=== PATIENT | male | born 1990 | race Caucasian/White ===

== ENCOUNTER 2020-04-20 20:13 | Inpatient (IN) | payer MEDICAID, SELFPAY ==
[~2020-04-20] VITALS: Ht 175.3 cm; Wt 79.6 kg
[~2020-04-20 20:13] MED LIST: CLIN150C14 PO; IBUP-1022 PO
[2020-04-20] MEDS ORDERED: NALOXONE 2MG/2ML SYRINGE (J2310 PER 1MG) IV STA ×2 (20:18→20:34)
[2020-04-20] MEDS ORDERED: NALOXONE INJ 0.4MG/1ML VIAL (J2310 PER 1MG) IM STA (20:18)
[2020-04-20] MEDS ORDERED: NALOXONE 2MG/2ML SYRINGE (J2310 PER 1MG) As Ordered ONE (20:20)
[2020-04-20] MEDS ORDERED: NALOXONE INJ 0.4MG/1ML VIAL (J2310 PER 1MG) IV STA (20:34)
--- NOTE | 2020-04-20 21:23 | REPVR ---
PROCEDURE INFORMATION: Exam: CT Head Without Contrast Exam date and time: 04/20/2020 9:11 PM Age: 29 years old Clinical indication: Altered mental status/memory loss; Confusion or disorientation; Additional info: AMS TECHNIQUE: Imaging protocol: Computed tomography of the head without contrast. Radiation optimization: All CT scans at this facility use at least one of these dose optimization techniques: automated exposure control; mA and/or kV adjustment per patient size (includes targeted exams where dose is matched to clinical indication); or iterative reconstruction. COMPARISON: No relevant prior studies available. FINDINGS: Brain: There is no evidence for an acute large vessel territorial infarct, intracranial hemorrhage, mass, mass effect, or herniation. The cortical gyration pattern, basal ganglia, thalami, brainstem, and cerebellum are normal in appearance. Ventricles: Normal. No ventriculomegaly. Bones/joints: Unremarkable. No acute fracture. Sinuses: Visualized sinuses are well-aerated. No air-fluid levels. Mastoid air cells: Visualized mastoid air cells are well-aerated. Soft tissues: Unremarkable. IMPRESSION: No acute intracranial abnormality. Electronically signed by: Shimon Gil On 04/20/2020 21:23:28 PM
[2020-04-20] MEDS ORDERED: PROPOFOL 1,000 MG/100 ML VIAL As Ordered ONE (21:27)
[2020-04-20] MEDS ORDERED: SUCCINYLCHOLINE INJ 200 MG/10 ML VIAL (J0330) IV STA (21:31)
[2020-04-20 21:46] LABS: BASO % 0.3 % (0.0-1.0); EOS # 0.3 10^3/uL (0.0-0.5); EOS % 2.5 % (0.0-3.0); HEMATOCRIT 38.1 % (42.0-52.0); HEMOGLOBIN 13.2 g/dl (13.5-17.5); LYMPH # 1.8 10^3/uL (1.5-5.0); LYMPH % 15.1 % (24.0-44.0); MEAN CORPUSCULAR HEMOGLOBIN 30.6 pg (27.0-33.0); MEAN CORPUSCULAR HGB CONC 34.6 g/dl (32.0-36.5); MEAN CORPUSCULAR VOLUME 88.2 fl (80.0-96.0); MONO # 0.8 10^3/uL (0.0-0.8); MONO % 7.1 % (0.0-5.0); NEUTROPHILS # 8.8 10^3/uL (1.5-8.5); NEUTROPHILS % 74.5 % (36.0-66.0); PLATELET COUNT, AUTOMATED 209 10^3/uL (150-450); RED BLOOD COUNT 4.32 10^6/uL (4.30-6.10); WHITE BLOOD COUNT 11.8 10^3/uL (4.0-10.0)
[2020-04-20 22:12] LABS: ALBUMIN 3.5 GM/DL (3.2-5.2); ALT/SGPT 31 U/L (12-78); BILIRUBIN,DIRECT < 0.1 MG/DL (0.0-0.2); BILIRUBIN,TOTAL 0.3 MG/DL (0.2-1.0); BLOOD UREA NITROGEN 19 MG/DL (7-18); CALCIUM LEVEL 8.5 MG/DL (8.5-10.1); CARBON DIOXIDE LEVEL 32 MEQ/L (21-32); CHLORIDE LEVEL 105 MEQ/L (98-107); CPK CREATINE PHOSPHOKINASE 550 U/L (39-308); ETHYL ALCOHOL (ETHANOL) < 0.003 % (0.000-0.010); FREE THYROXINE INDEX 4.8 % (1.4-3.8); GLOMERULAR FILTRATION RATE > 60.0 (>60); GLUCOSE, FASTING 105 MG/DL (70-100); SODIUM LEVEL 140 MEQ/L (136-145); T UPTAKE 39 % (33-40); THYROXINE (T4) 12.2 UG/DL (4.5-12.0); TOTAL PROTEIN 6.6 GM/DL (6.4-8.2)
[2020-04-20] MEDS ORDERED: NS 1,000 ML IV ONE (22:30)
[2020-04-20] MEDS: propofoL 1,000 MG in IV 1 EA IV SCH ×2 (22:40→23:00)
[2020-04-20] MEDS ORDERED: METAL LOCK LOOP XX ONE (23:07)
[2020-04-20 23:14] LABS: AMPHETAMINES LEVEL URINE NEGATIVE (NEGATIVE); BARBITURATES URINE NEGATIVE (NEGATIVE); BENZODIAZEPINES URINE NEGATIVE (NEGATIVE); CANNABINOIDS URINE POSITIVE (NEGATIVE); COCAINE METABOLITE URINE POSITIVE (NEGATIVE); METHADONE URINE POSITIVE (NEGATIVE); OPIATES URINE POSITIVE (NEGATIVE); PHENCYCLIDINE URINE NEGATIVE (NEGATIVE)
[2020-04-20] MEDS ORDERED: MIDAZOLAM INJ 2MG/2ML VIAL (J2250 PER 1MG) IV PRN (23:30)
[2020-04-20] MEDS ORDERED: MULTIVITAMIN -ADULT INJECTION 10 ML, THIAMINE INJection 100 MG, FOLIC ACID 1 MG in NS 1... IV ONE (23:30)
[2020-04-20 23:43] LABS: ACETAMINOPHEN LEVEL < 2.0 UG/ML (10.0-30.0); SALICYLATE LEVEL 2.6 MG/DL (5.0-30.0); TROPONIN I 0.04 NG/ML (< 0.10)
[2020-04-21] VITALS (13 sets, daily range): BP systolic 99–130; BP diastolic 53–69; O2SAT 98
[2020-04-21] MEDS: propofoL 1,000 MG in IV 1 EA IV SCH ×4 (00:55→08:40)
[2020-04-21 04:21] LABS: BASO % 0.2 % (0.0-1.0); EOS # 0.1 10^3/uL (0.0-0.5); EOS % 1.1 % (0.0-3.0); HEMATOCRIT 36.7 % (42.0-52.0); HEMOGLOBIN 12.5 g/dl (13.5-17.5); LYMPH # 1.6 10^3/uL (1.5-5.0); LYMPH % 12.1 % (24.0-44.0); MEAN CORPUSCULAR HEMOGLOBIN 30.4 pg (27.0-33.0); MEAN CORPUSCULAR HGB CONC 34.1 g/dl (32.0-36.5); MEAN CORPUSCULAR VOLUME 89.3 fl (80.0-96.0); MONO # 0.7 10^3/uL (0.0-0.8); MONO % 5.7 % (0.0-5.0); NEUTROPHILS # 10.3 10^3/uL (1.5-8.5); NEUTROPHILS % 80.5 % (36.0-66.0); PLATELET COUNT, AUTOMATED 188 10^3/uL (150-450); RED BLOOD COUNT 4.11 10^6/uL (4.30-6.10); WHITE BLOOD COUNT 12.8 10^3/uL (4.0-10.0)
[2020-04-21 04:52] LABS: ALBUMIN 3.1 GM/DL (3.2-5.2); ALT/SGPT 26 U/L (12-78); BILIRUBIN,TOTAL 0.4 MG/DL (0.2-1.0); BLOOD UREA NITROGEN 18 MG/DL (7-18); CALCIUM LEVEL 8.2 MG/DL (8.5-10.1); CARBON DIOXIDE LEVEL 29 MEQ/L (21-32); CHLORIDE LEVEL 107 MEQ/L (98-107); CPK CREATINE PHOSPHOKINASE 391 U/L (39-308); GLOMERULAR FILTRATION RATE > 60.0 (>60); GLUCOSE, FASTING 93 MG/DL (70-100); MAGNESIUM LEVEL 2.1 MG/DL (1.8-2.4); PHOSPHORUS LEVEL 3.6 MG/DL (2.5-4.9); POTASSIUM SERUM 4.2 MEQ/L (3.5-5.1); SODIUM LEVEL 140 MEQ/L (136-145); TOTAL PROTEIN 5.9 GM/DL (6.4-8.2)
[2020-04-21 05:34] LABS: ABG BASE EXCESS 2.9 (-2.0-2.0); ABG HCO3 28.1 MEQ/L (22.0-26.0); ABG O2 SATURATION 97.8 % (95.0-99.0); ABG PARTIAL PRESSURE CO2 45.1 mmHg (35.0-45.0); ABG PARTIAL PRESSURE O2 106.8 mmHg (75.0-100.0); ABG STANDARD HCO3 27.1 MEQ/L (22.0-26.0); ABG TOTAL CO2 29.5 MEQ/L (22.0-29.0); ABG pH (ARTERIAL) 7.412 UNITS (7.350-7.450)
[2020-04-21] MEDS ORDERED: PROPOFOL 1,000 MG/100 ML VIAL As Ordered ONE (05:37)
--- NOTE | 2020-04-21 06:59 | HPE ---
DATE OF ADMISSION: 04/20/2020 CHIEF COMPLAINT: Altered mental status. HISTORY OF PRESENT ILLNESS: Mr. Monsivais is a 29-year-old male with a past medical history of polysubstance abuse with previous history of overdose who presented to the ED with lethargy and altered mental status. History is obtained from the chart and from other collateral information as the patient is unable to provide history. As per EMS, the patient was at work earlier in the day when his coworker had noticed that he had been absent for quite some time. When they went to find him, he was unconscious near his vehicle. EMS and police had given the patient 2 mg of Narcan IM times two with minimal response. He was somewhat arousable with painful stimulation, but very quickly would become unresponsive again. He had nasopharyngeal airway placed and bag mask ventilation while in the field en route to the ED. The patient was given an additional 2 mg of Narcan IM times two and then IV Narcan 2 mg times two. With the Narcan, he was arousable to sternal rub, however, would again become unresponsive and obtunded. There was concern for airway protection and the patient was intubated in the ED and placed on mechanical ventilation. He was also noted to have some nose bleeding as well in the ED. The patient has a previous history of heroin abuse and overdose, although there is also report of other polysubstance abuse. PAST MEDICAL/SURGICAL HISTORY: 1. Polysubstance abuse including heroin with a previous history of overdose. 2. Nicotine dependence. 3. History of traumatic pneumothorax on the right. ALLERGIES: MORPHINE SOCIAL HISTORY: Reported history of polysubstance abuse including heroin. Current active smoker. FAMILY HISTORY: Unable to be obtained. HOME MEDICATIONS: None. REVIEW OF SYSTEMS: Unable to be obtained as patient is intubated and sedated. PHYSICAL EXAMINATION: Vitals: Temperature 98.2, pulse 75, respirations 18, blood pressure 102/50, O2 sat 98% on mechanical ventilation at 40% FiO2. General: The patient is intubated and sedated. He is minimally responsive even to sternal rub. HEENT: Normocephalic, atraumatic. Pupils are pinpoint and sluggish. There is dried blood in the nares. Neck is supple. Trachea is midline. No palpable cervical adenopathy. Moist mucous membranes noted. Cardiovascular: Regular rate and rhythm. Normal S1, S2. Unable to appreciate any murmurs or rubs. PMI is nondisplaced. Pulmonary: Coarse ventilator breath sounds bilaterally with no wheezing or rales. Abdomen: Soft, nontender, nondistended. No palpable hepatosplenomegaly. Extremities: There is no pitting edema in the bilateral lower extremities. There are track lemons noted on his left arm. LABORATORY DATA: WBC 11.81, hemoglobin 13.2, platelets 209. Chemistry: Sodium is 140, potassium 4.0, chloride 105, bicarb 32, BUN 19, creatinine 1.20, glucose 105, AST 84, ALT 31, alkaline phosphatase 70, CPK 550. TSH is 2.08. Free T4 4.8. Alcohol level is negative. Urine toxicology positive opioids, methadone, cocaine and cannabis. ABG: pH 7.4, pCO2 of 50.2, pO2 of 110. IMAGING STUDIES: CT head showed no acute intracranial pathology. Chest x-ray showed ET tube in good position and OG tube in place coursing below the diaphragm. There is questionable left basilar infiltrate and possible hilar fullness. I ASSESSMENT/PLAN: Mr. Monsivais is a 29-year-old male with a history of polysubstance abuse who presented with altered mental status thought to be secondary to overdose. The patient's coworker reported that he did have a possible heroin overdose and the patient was administered Narcan a total of 8 mg IM and 4 mg IV with minimal response in his mental status. The patient continued to be obtunded with a depressed respiratory rate and there was concern for airway protection and he was intubated in the ED and placed on mechanical ventilator. 1. Metabolic encephalopathy secondary to drug overdose/intoxication. Urine toxicology was positive for methadone, opiods, cannabis and cocaine. - Continue mechanical ventilation with settings of PRVC at 500/15/40/5. - Continue with daily ABGs and chest x-rays while intubated. - Continue with the vent bundle care with head of bed elevation and chlorhexidine mouth wash - Will perform daily sedation vacation and weaning trials as tolerated. - Continue with propofol for sedation with Versed p.r.n. for agitation. - Will check Tylenol and salicylate level given unknown overdose. - The patient was given 1 liter normal saline in the ED. Will give him an additional 1 liter with a banana bag for IV fluid hydration. - Will monitor electrolytes and replete as needed. - The patient had mildly elevated CPK and an AST which was mildly elevated. Will repeat CPK in the a.m. and suspect will trend down with IV fluid hydration. - Will continue Gautam for monitoring of ins and outs and follow removal protocol. Gastrointestinal (GI) prophylaxis. Famotidine. Deep vein thrombosis (DVT) prophylaxis. Lovenox. CODE STATUS: Full code. Total critical care time spent, not including procedures approximately 1 hour and 45 minutes. MTDD
[2020-04-21] MEDS ORDERED: SUCCINYLCHOLINE 100 MG/5 ML SYRINGE (J0330) ONE (07:51)
[2020-04-21] MEDS ORDERED: FAMOTIDINE 20 MG TAB PO SCH (09:00)
[2020-04-21] MEDS ORDERED: ENOXAPARIN 40MG/0.4ML SYRINGE (J1650 PER 10MG) SC SCH (09:00)
[2020-04-21] MEDS ORDERED: CHLORHEXIDINE GLUCONATE 0.12 % 15ML UDC (PERIDEX ORAL RINSE) MT SCH (09:00)
--- NOTE | 2020-04-21 10:56 | IPNPDOC ---
Subjective Date Seen The patient was seen on 04/21/20. Subjective Chief Complaint/HPI Patient seen at bedside. Extubated just an hour ago. Somnolent but easily arousable. Denied any complaints. Denied any SOB or cough. Objective Physical Examination General Exam: Positive: Cooperative, No Acute Distress, Other (sleepy but easily arousable) Eye Exam: Positive: PERRLA, Conjunctiva & lids normal, EOMI; Negative: Sclera icteric ENT Exam: Positive: Atraumatic, Mucous membr. moist/pink, Pharynx Normal Neck Exam: Positive: Supple; Negative: JVD, thyromegaly Chest Exam: Positive: Normal air movement, Rales Heart Exam: Positive: Rate Normal, Regular Rhythm, Normal S1, Normal S2; Negative: Murmurs, Rubs Telemetry: Positive: No significant arrhythmia Abdomen Exam: Positive: Normal bowel sounds, Soft; Negative: Tenderness, Hepatospenomegaly Extremity Exam: Negative: Clubbing, Cyanosis, Edema Assessment /Plan Assessment 29 year old male with PMH of Polysubstance abuse including heroin with a previous history of overdose, Nicotine dependence, History of traumatic pneumothorax was admitted on 04/20/20 for drug overdose , metabolic encephalopathy and acute respiratory failure. He was intubated in ED and admitted to ICU. His utox was positive for opiates, cocaine, marijana, methadone. He was success fully extubated on 04/21/20 and was transferred to the hospitalist service. Acute respiratory failure with hypercarbia s/p intubation and extubation. due to opiates now resolved. Acute metabolic encephalopathy due to polysubstance abuse. improving. Plan/VTE VTE Prophylaxis Ordered?: Yes VS, [facility]&O[facility] Vital Signs/I&O Vital Signs Date Time Temp Pulse Resp B/P (MAP) Pulse Ox O2 Delivery O2 Flow Rate FiO2 04/21/20 10:10 78 16 100 Nasal Cannula 2.0 04/21/20 10:00 119/69 (86) 04/21/20 09:00 25 04/21/20 08:00 98.8 I&O- Last 24 Hours up to 6 AM 04/21/20 06:00 Intake Total 1945 ml Output Total 420 ml Balance 1525 ml Laboratory Data 24H LABS Laboratory Tests 2 04/20/20 20:58: Immature Granulocyte % (Auto) 0.5, Neutrophils (%) (Auto) 74.5H, Lymphocytes (%) (Auto) 15.1L, Monocytes (%) (Auto) 7.1H, Eosinophils (%) (Auto) 2.5, Basophils (%) (Auto) 0.3, Neutrophils # (Auto) 8.8H, Lymphocytes # (Auto) 1.8, Monocytes # (Auto) 0.8, Eosinophils # (Auto) 0.3, Basophils # (Auto) 0.0, Nucleated Red Blood Cells % (auto) 0.0, Anion Gap 3L, Glomerular Filtration Rate > 60.0, Calcium Level 8.5, Total Bilirubin 0.3, Direct Bilirubin < 0.1, Aspartate Amino Transf (AST/SGOT) 44H, Alanine Aminotransferase (ALT/SGPT) 31, Alkaline Phosphatase 70, Total Creatine Kinase 550H, Troponin I 0.04, Total Protein 6.6, Albumin 3.5, Albumin/Globulin Ratio 1.1, Thyroid Stimulating Hormone (TSH) 2.080, Free Thyroxine Index 4.8H, Thyroxine (T4) 12.2H, Triiodothyronine (T3) Uptake 39, Salicylates Level 2.6L, Acetaminophen Level < 2.0L, Ethyl Alcohol L evel < 0.003 04/20/20 21:22: Bedside Glucose (Misc Panel) 124H 04/20/20 22:22: POC pH (Misc Panel) 7.403, POC Base Excess (Misc Panel) 7.0H, POC Saturated Perc ent O2 (Misc) 98, POC pO2 (Misc Panel) 110.0H, POC pCO2 (Misc Panel) 50.2H, POC HCO3 (Misc Panel) 31.3H, POC Total CO2 (Misc Panel) 33.0H 04/20/20 22:30: Urine Opiates Screen POSITIVEH, Urine Methadone Screen POSITIVEH, Urine Barbiturates Screen NEGATIVE, Urine Phencyclidine Screen NEGATIVE, Urine Amphetamines Screen NEGATIVE, Urine Benzodiazepines Screen NEGATIVE, Urine Cocai ne Metabolite Screen POSITIVEH, Urine Cannabinoids Screen POSITIVEH 04/21/20 04:08: Immature Granulocyte % (Auto) 0.4, Neutrophils (%) (Auto) 80.5H, Lymphocytes (%) (Auto) 12.1L, Monocytes (%) (Auto) 5.7H, Eosinophils (%) (Auto) 1.1, Basophils (%) (Auto) 0.2, Neutrophils # (Auto) 10.3H, Lymphocytes # (Auto) 1.6, Monocytes # (Auto) 0.7, Eosinophils # (Auto) 0.1, Basophils # (Auto) 0.0, Nucleated Red Blood Cells % (auto) 0.0, Anion Gap 4L, Glomerular Filtration Rate > 60.0, Ca lcium Level 8.2L, Phosphorus Level 3.6, Magnesium Level 2.1, Total Bilirubin 0.4, Aspartate Amino Transf (AST/SGOT) 32, Alanine Aminotransferase (ALT/SGPT) 26, Alkaline Phosphatase 56, Total Creatine Kinase 391H, Total Protein 5.9L, Albumin 3.1L, Albumin/Globulin Ratio 1.1 04/21/20 05:24: Blood Gas Bicarbonate Standard 27.1H, Arterial Blood pH 7.412, Arterial Blood Partial Pressure CO2 45.1H, Arterial Blood Partial Pressure O2 106.8H, Arterial Blood Total CO2 29.5H, Arterial Blood HCO3 28.1H, Arterial Blood Base Excess 2.9H, Arterial Blood Oxygen Saturation 97.8 CBC/BMP Laboratory Tests 04/20/20 20:58 04/21/20 04:08 ALEXANDREA VELASQUEZ MD April 21, 2020 10:27
--- NOTE | 2020-04-21 12:01 | CCN ---
DATE: 04/21/2020 The patient was seen and examined this morning during bedside rounts. The patient had a sedation vacation performed on the ventilator and he was awake and following commands appropriately. The patient had a weaning trial performed which he tolerated and he was extubated later in the morning. PHYSICAL EXAMINATION: Temperature 98.7, pulse 75 respirations 15, blood pressure 99/56, O2 sat 98% on vent at 30% FiO2. Ins 790, outs 420. General: The patient is intubated and was on sedation. Off sedation, he is responsive and following commands appropriately. HEENT: Normocephalic, atraumatic. Pupils are reactive to light bilaterally. Neck supple. Trachea midline. No palpable cervical lymphadenopathy. Moist mucous membranes noted. Cardiovascular: Regular rate and rhythm. Normal S1-S2. No murmurs appreciated. Pulmonary: Some coarse ventilated breath sounds bilaterally with no significant wheezing, rhonchi or rales. Abdomen: Soft, nontender, nondistended. No palpable hepatosplenomegaly. Extremities: There is no pitting edema in the bilateral lower extremities. There are track lemons noted in particular on his left arm. LABS: WBC 12.8, hemoglobin 12.5, platelets 188. Chemistry: Sodium 140, potassium 4.2, chloride 107, bicarbonate 29, BUN 18, creatinine 0.90, glucose 93. CPK trending down to 391. AST and ALT have now improved to within normal limits. Albumin is 2.1. ABGs this morning with pH 7.412, pCO2 of 45.1 and pO2 106.8. IMAGING STUDIES: Chest x-ray this morning showed endotracheal tube (ET) tube in good position, although slightly lower than yesterday. Orogastric (OG) tube is in place coursing below the diaphragm. There is questionable perihilar fullness or increased markings, although may also be due to inspiration technique. ASSESSMENT/PLAN: 1. Mr. Monsivais is a 29-year-old male with history of polysubstance abuse who presented with altered mental status secondary to overdose. The patient was thought to have a possible heroin overdose and he did receive multiple doses of Narcan; however, continued to have depressed mental status and was intubated for concern for airway protection in the ED. The patient was transferred to the ICU on mechanical ventilation. 2. Metabolic encephalopathy secondary to drug overdose/intoxication. His urine toxicology was positive for methadone, opioids, cannabis and cocaine. - The patient was on mechanical ventilation with PRVC. He had a weaning trial performed this morning which he tolerated and was extubated to humidified oxygen and later transitioned to nasal cannula oxygen supplementation. - Continue nasal cannula oxygen supplementation and wean off as tolerated. - The patient has mild leukocytosis, but is afebrile. His x-ray has a questionable perihilar fullness versus from vasculature and may also be prominent in the setting of poor inspiration. Will continue to monitor and if he does have symptoms of increased cough or fever and leukocytosis consider treatment for possible aspiration pneumonia. - The patient's CPK has improved with IV fluids. Would advance the patient's diet as tolerated. Encourage IV fluid hydration. - Continue to monitor electrolytes and replete as needed. - Discontinue sedation as the patient is extubated and discontinue daily ABGs and chest x-rays. Gastrointestinal (GI) prophylaxis. Famotidine. Deep vein thrombosis (DVT) prophylaxis. Lovenox. Code Status: Full code. Total critical care time spent, not including any procedures, approximately 45 minutes. Please do not hesitate to call if any further questions or concerns
--- NOTE | 2020-04-21 12:54 | ECGEPIP ---
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
--- NOTE | 2020-04-21 12:55 | ECGEPIP ---
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
[2020-04-21] MEDS ORDERED: NS 1,000 ML IV SCH (19:30)
[2020-04-22 06:00] VITALS: BP 128/66
[2020-04-22 06:25] LABS: BASO % 0.2 % (0.0-1.0); EOS # 0.2 10^3/uL (0.0-0.5); EOS % 1.4 % (0.0-3.0); HEMATOCRIT 37.7 % (42.0-52.0); HEMOGLOBIN 12.9 g/dl (13.5-17.5); LYMPH # 1.6 10^3/uL (1.5-5.0); LYMPH % 11.3 % (24.0-44.0); MEAN CORPUSCULAR HEMOGLOBIN 30.9 pg (27.0-33.0); MEAN CORPUSCULAR HGB CONC 34.2 g/dl (32.0-36.5); MEAN CORPUSCULAR VOLUME 90.4 fl (80.0-96.0); MONO # 0.9 10^3/uL (0.0-0.8); MONO % 6.6 % (0.0-5.0); NEUTROPHILS # 11.3 10^3/uL (1.5-8.5); NEUTROPHILS % 80.1 % (36.0-66.0); PLATELET COUNT, AUTOMATED 182 10^3/uL (150-450); RED BLOOD COUNT 4.17 10^6/uL (4.30-6.10); WHITE BLOOD COUNT 14.1 10^3/uL (4.0-10.0)
[2020-04-22 06:44] LABS: ALBUMIN 2.8 GM/DL (3.2-5.2); ALT/SGPT 26 U/L (12-78); BILIRUBIN,TOTAL 0.7 MG/DL (0.2-1.0); BLOOD UREA NITROGEN 11 MG/DL (7-18); CALCIUM LEVEL 8.1 MG/DL (8.5-10.1); CARBON DIOXIDE LEVEL 30 MEQ/L (21-32); CHLORIDE LEVEL 104 MEQ/L (98-107); CREATININE FOR GFR 0.73 MG/DL (0.70-1.30); GLOMERULAR FILTRATION RATE > 60.0 (>60); GLUCOSE, FASTING 75 MG/DL (70-100); POTASSIUM SERUM 3.8 MEQ/L (3.5-5.1); SODIUM LEVEL 141 MEQ/L (136-145); TOTAL PROTEIN 5.9 GM/DL (6.4-8.2)
--- NOTE | 2020-04-22 11:42 | DS.PDOC ---
Discharge Summary General Date of Admission April 20, 2020 at 23:16 Date of Discharge 04/22/20 Discharge Summary PROCEDURES PERFORMED DURING STAY: [None]. DISCHARGE DIAGNOSES: Acute respiratory failure with hypercarbia due to Opiated IV drug Overdose Metabolic encephalopathy Polysubstance abuse. COMPLICATIONS/CHIEF COMPLAINT: Drug Overdose. HISTORY OF PRESENT ILLNESS: See history and physical HOSPITAL COURSE: 29 year old male with PMH of Polysubstance abuse including heroin with a previous history of overdose, Nicotine dependence, History of traumatic pneumothorax was admitted on 04/20/20 for drug overdose , metabolic encephalopathy and acute respiratory failure. He was intubated in ED and admit john paul to ICU. His utox was positive for opiates, cocaine, marijuana, methadone. He was success fully extubated on 04/21/20 and was transferred to the hospitalist service. He said he just took 1 IV shot and it has never knocked him out before. Acute respiratory failure with hypercarbia s/p intubation and extubation. due to IV drug use--opiates now resolved. Acute metabolic encephalopathy due to polysubstance abuse. improved DISCHARGE MEDICATIONS: Please see below. ALLERGIES: Please see below. PHYSICAL EXAMINATION ON DISCHARGE: VITAL SIGNS: Please see below. General Exam: Positive: Cooperative, No Acute Distress, Other (sleepy but easily arousable) Eye Exam: Positive: PERRLA, Conjunctiva & lids normal, EOMI; Negative: Sclera icteric ENT Exam: Positive: Atraumatic, Mucous membr. moist/pink, Pharynx Normal Neck Exam: Positive: Supple; Negative: JVD, thyromegaly Chest Exam: Positive: Normal air movement, Rales Heart Exam: Positive: Rate Normal, Regular Rhythm, Normal S1, Normal S2; Negative: Murmurs, Rubs Telemetry: Positive: No significant arrhythmia Abdomen Exam: Positive: Normal bowel sounds, Soft; Negative: Tenderness, Hepatosplenomegaly Extremity Exam: Negative: Clubbing, Cyanosis, Edema LABORATORY DATA: Please see below. ACTIVITY: [As tolerated]. DIET: regular DISPOSITION: 01 Home, Self-Care. DISCHARGE CONDITION: [Stable]. TIME SPENT ON DISCHARGE: 25 minutes. Vital Signs/I&Os Vital Signs Date Time Temp Pulse Resp B/P (MAP) Pulse Ox O2 Delivery O2 Flow Rate FiO2 04/22/20 06:00 99.8 88 19 128/66 (86) 95 Room Air 04/21/20 10:10 2.0 04/21/20 09:00 25 I&O- Last 24 Hours up to 6 AM 04/22/20 06:00 Intake Total 1786 ml Output Total 2050 ml Balance -264 ml Laboratory Data Labs 24H Laboratory Tests 2 04/22/20 05:32: Immature Granulocyte % (Auto) 0.4, Neutrophils (%) (Auto) 80.1H, Lymphocytes (%) (Auto) 11.3L, Monocytes (%) (Auto) 6.6H, Eosinophils (%) (Auto) 1.4, Basophils (%) (Auto) 0.2, Neutrophils # (Auto) 11.3H, Lymphocytes # (Auto) 1.6, Monocytes # (Auto) 0.9H, Eosinophils # (Auto) 0.2, Basophils # (Auto) 0.0, Nucleated Red Blood Cells % (auto) 0.0, Anion Gap 7L, Glomerular Filtration Rate > 60.0, Calcium Level 8.1L, Total Bilirubin 0.7#, Aspartate Amino Transf (AST/SGOT) 21, Alanine Aminotransferase (ALT/SGPT) 26, Alkaline Phosphatase 63, Total Protein 5.9L, Albumin 2.8L, Albumin/Globulin Ratio 0.9 CBC/BMP Laboratory Tests 04/22/20 05:32 Discharge Medications Unable to Obtain Active Prescriptions or Reported Meds Allergies Coded Allergies: morphine (Unverified Allergy, Unknown, 04/20/20) ALEXANDREA VELASQUEZ MD April 22, 2020 11:42
--- NOTE | 2020-04-24 08:11 | REP ---
REASON: Status post endotracheal tube placement. COMPARISON: 10/29/2012 Preliminary report was given by Dr. Meeks. The technique utilized in obtaining the radiograph has magnified the cardiac silhouette and accentuated the interstitial markings. Since the last examination an endotracheal tube has been placed the tip of which is in satisfactory position at the level of the aortic knob. A nasogastric tube is also present the tip of which is beyond the scope of the radiograph beneath the diaphragmatic surface of the left lung. The heart is not enlarged. A few patchy opacities may be present in the left retrocardiac region. The pleural angles are sharp. The osseous structures are within normal limits. IMPRESSION: 1. Endotracheal tube and nasogastric tube as described above in satisfactory position. 2. Possible minimal left lower lobe subsegmental atelectatic changes. PA and lateral views of the chest is recommended for followup. Electronically Signed by Mulugeta Hollis DO 04/24/2020 09:38 A
--- NOTE | 2020-04-24 11:57 | REP ---
REASON FOR EXAM: Followup. COMPARISON: 04/20/2020 Preliminary report was given by Dr. Meeks. The nasogastric and endotracheal tubes are unchanged. Cardiomediastinal silhouette is stable. The heart is not enlarged. Minimal left basilar opacities seen on the prior exam appear to have improved. The pleural angles are again seen to be sharp. There are no abnormal opacities. There is no change in the osseous structures. IMPRESSION: Minimal left basilar subsegmental atelectatic changes suspected but improved from the prior exam. There is no evidence of acute cardiopulmonary disease. Endotracheal tube and nasogastric tube remain in satisfactory position. Electronically Signed by Mulugeta Hollis DO 04/24/2020 12:27 P
== END 2020-04-22 09:08 | disposition home or self-care (01) | DRG 812 ==
LOC: M ED 20:13 → M ED INP 23:16 → ENRESERV 23:51 → M ICU 04-21 00:27 → M MSPAV 04-21 13:15
PROVIDERS: ADMIT Internal Medicine; ATTEND Internal Medicine Nephrology
PROC: 0BH17EZ Insertion of Endotracheal Airway into Trachea, Via Natural or Artificial Opening (ICD-10-PCS; principal; 2020-04-20)
PROC: 5A1935Z Respiratory Ventilation, Less than 24 Consecutive Hours (ICD-10-PCS; 2020-04-21)
DX: T40.601A Poisoning by unspecified narcotics, accidental (unintentional), initial encounter (principal); J96.02 Acute respiratory failure with hypercapnia; G92 Toxic encephalopathy; F17.200 Nicotine dependence, unspecified, uncomplicated; F11.10 Opioid abuse, uncomplicated; F12.10 Cannabis abuse, uncomplicated; F14.10 Cocaine abuse, uncomplicated; Z88.5 Allergy status to narcotic agent

== ENCOUNTER 2020-05-26 11:25 | Emergency (ER) | payer MEDICAID ==
[~2020-05-26] VITALS: Ht 175.3 cm; Wt 78.0 kg
[2020-05-26] MEDS ORDERED: NS 1,000 ML IV ONE ×2 (11:30→12:45)
--- NOTE | 2020-05-26 12:09 | REP ---
Clinical: Drug overdose . Comparison: 04/20/2020 . Findings: The ventricles, sulci, and cisterns are normal in position and appearance. Perkins-white differentiation is maintained. No acute intracranial hemorrhage, mass/mass effect, pathology or trauma/injury. No evidence for acute infarction. No extra-axial fluid collection. Calvarium is intact. Paranasal sinuses and mastoid air cells are clear. Impression: No evidence for acute intracranial pathology or trauma/injury. Electronically Signed by Lizandro Meeks MD 05/26/2020 12:00 P
[2020-05-26 12:15] LABS: BASO % 0.2 % (0.0-1.0); EOS # 0.2 10^3/uL (0.0-0.5); EOS % 3.7 % (0.0-3.0); HEMATOCRIT 37.7 % (42.0-52.0); HEMOGLOBIN 12.7 g/dl (13.5-17.5); LYMPH # 1.8 10^3/uL (1.5-5.0); LYMPH % 28.9 % (24.0-44.0); MEAN CORPUSCULAR HGB CONC 33.7 g/dl (32.0-36.5); MEAN CORPUSCULAR VOLUME 88.9 fl (80.0-96.0); MONO # 0.6 10^3/uL (0.0-0.8); MONO % 9.8 % (0.0-5.0); NEUTROPHILS # 3.6 10^3/uL (1.5-8.5); NEUTROPHILS % 57.1 % (36.0-66.0); PLATELET COUNT, AUTOMATED 177 10^3/uL (150-450); RED BLOOD COUNT 4.24 10^6/uL (4.30-6.10); WHITE BLOOD COUNT 6.2 10^3/uL (4.0-10.0)
--- NOTE | 2020-05-26 12:16 | REP ---
Clinical: Drug overdose . Comparison: 04/21/2020 . Findings: The mediastinum and cardiac silhouette are stable and within normal limits for portable technique. The lung zelaya are clear without acute consolidation, effusion, or pneumothorax. Skeletal structures are intact. Impression: No acute cardiopulmonary process appreciated. Electronically Signed by Lizandro Meeks MD 05/26/2020 12:08 P
--- NOTE | 2020-05-26 12:46 | ECGEPIP ---
[facility] - ED Test Date: 2020-05-26 Pat Name: KELLI PAINTER Department: Room: - Gender: Male Plate Former: JT : 1990 Requested By: Polina Frank Order Number: [id number] Reading MD: Polina Frank Measurements Intervals [place] Rate: 73 P: 38 MN: 140 QRS: 38 QRSD: 110 T: 11 QT: 387 QTc: 428 Interpretive Statements SINUS RHYTHM DECREASED RATE 04/20/20 Electronically Signed on 05-26-2020 12:45:32 EDT by Polina Frank
[2020-05-26 12:48] LABS: ACETAMINOPHEN LEVEL < 2.0 UG/ML (10.0-30.0); ALBUMIN 3.3 GM/DL (3.2-5.2); ALT/SGPT 41 U/L (12-78); BILIRUBIN,DIRECT 0.1 MG/DL (0.0-0.2); BILIRUBIN,TOTAL 0.3 MG/DL (0.2-1.0); BLOOD UREA NITROGEN 10 MG/DL (7-18); CALCIUM LEVEL 8.2 MG/DL (8.5-10.1); CARBON DIOXIDE LEVEL 28 MEQ/L (21-32); CHLORIDE LEVEL 106 MEQ/L (98-107); CPK CREATINE PHOSPHOKINASE 480 U/L (39-308); CREATININE FOR GFR 0.91 MG/DL (0.70-1.30); ETHYL ALCOHOL (ETHANOL) < 0.003 % (0.000-0.010); GLOMERULAR FILTRATION RATE > 60.0 (>60); GLUCOSE, FASTING 79 MG/DL (70-100); POTASSIUM SERUM 3.3 MEQ/L (3.5-5.1); SODIUM LEVEL 139 MEQ/L (136-145); TOTAL PROTEIN 6.8 GM/DL (6.4-8.2)
[2020-05-26 13:55] LABS: AMPHETAMINES LEVEL URINE NEGATIVE (NEGATIVE); BARBITURATES URINE NEGATIVE (NEGATIVE); BENZODIAZEPINES URINE NEGATIVE (NEGATIVE); CANNABINOIDS URINE POSITIVE (NEGATIVE); COCAINE METABOLITE URINE POSITIVE (NEGATIVE); METHADONE URINE NEGATIVE (NEGATIVE); OPIATES URINE POSITIVE (NEGATIVE); PHENCYCLIDINE URINE NEGATIVE (NEGATIVE)
[2020-05-26 15:15] VITALS: BP 127/74
== END 2020-05-26 15:35 | disposition home or self-care (01) ==
LOC: EDBD 11:25 → M ED 11:25
DX: F11.10 Opioid abuse, uncomplicated (principal); Z88.5 Allergy status to narcotic agent; F17.210 Nicotine dependence, cigarettes, uncomplicated
CPT/HCPCS: 36415; 36600; 70450; 71045; 80048; 80076; 80307; 82550; 82803; 84443; 85025; 93005; 93041; 94760; 96360; 96361; 99285; G0480

== ENCOUNTER → 2020-09-03 | Outpatient (REF) | payer OTHER | LOC: M LAB REF 15:54 | PROVIDERS: ATTEND Surgery | DX: U07.1 COVID-19 (principal) ==

== ENCOUNTER 2021-07-19 20:32 | Inpatient (IN) | payer MEDICAID, OTHER ==
[~2021-07-19] VITALS: Ht 172.7 cm; Wt 76.9 kg
[~2021-07-19 20:32] MED LIST changes: -CLIN150C14 PO; +CLIN150C17 PO
[2021-07-20] MEDS ORDERED: cefTRIAXone SOD 2 GM in D5W MINI-BAG PLUS 50 ML IV ONE (01:50)
[2021-07-20] MEDS ORDERED: VANCOMYCIN HCL 1,000 MG, VIAL MATE ADAPTER 1 EACH in NS 250 ML IV ONE (01:50)
[2021-07-20] MEDS ORDERED: ISOVUE-370 76% 100ML VIAL As Ordered ONE (01:59)
[2021-07-20 02:13] LABS: BASO % 0.2 % (0.0-1.0); HEMATOCRIT 42.5 % (42.0-52.0); HEMOGLOBIN 14.3 g/dl (13.5-17.5); LYMPH # 0.8 10^3/uL (1.5-5.0); LYMPH % 6.3 % (24.0-44.0); MEAN CORPUSCULAR HEMOGLOBIN 30.6 pg (27.0-33.0); MEAN CORPUSCULAR HGB CONC 33.6 g/dl (32.0-36.5); MEAN CORPUSCULAR VOLUME 90.8 fl (80.0-96.0); MONO # 1.1 10^3/uL (0.0-0.8); MONO % 9.3 % (2.0-8.0); NEUTROPHILS # 10.2 10^3/uL (1.5-8.5); NEUTROPHILS % 83.6 % (36.0-66.0); PLATELET COUNT, AUTOMATED 195 10^3/uL (150-450); RED BLOOD COUNT 4.68 10^6/uL (4.30-6.10); WHITE BLOOD COUNT 12.2 10^3/uL (4.0-10.0)
[2021-07-20] MEDS: MORPHINE 2 MG/ML 1ML VIAL (J2270) IV PRN ×6 (02:23→20:54)
[2021-07-20 02:36] LABS: ERYTHROCYTE SEDIMENTATION RATE 27 mm/hr (0-15)
[2021-07-20 02:48] LABS: BLOOD UREA NITROGEN 10 MG/DL (7-18); C REACTIVE PROTEIN QUANTITATIV 1.08 MG/DL (0.00-0.30); CALCIUM LEVEL 8.7 MG/DL (8.5-10.1); CARBON DIOXIDE LEVEL 32 MEQ/L (21-32); CHLORIDE LEVEL 105 MEQ/L (98-107); CREATININE FOR GFR 0.79 MG/DL (0.70-1.30); GLOMERULAR FILTRATION RATE > 60.0 (>60); GLUCOSE, FASTING 104 MG/DL (70-100); POTASSIUM SERUM 4.2 MEQ/L (3.5-5.1); SODIUM LEVEL 139 MEQ/L (136-145)
[2021-07-20 04:36] LABS: RSV AMPLIFICATION NEGATIVE (NEGATIVE)
[2021-07-20] MEDS ORDERED: HOME MED LIST COMPLETE! XX SCH (06:35)
[2021-07-20] MEDS ORDERED: ACETAMINOPHEN TAB 650MG DOSE (2X325MG) PO PRN (08:30)
[2021-07-20] MEDS: VANCOMYCIN HCL 1,000 MG, VIAL MATE ADAPTER 1 EACH in NS 250 ML IV SCH ×2 (09:10→16:47)
[2021-07-20] MEDS: ENOXAPARIN 40MG/0.4ML SYRINGE (J1650 PER 10MG) SC SCH (09:14)
[2021-07-20] MEDS: cefTRIAXone SOD 2 GM in D5W MINI-BAG PLUS 50 ML IV SCH ×2 (12:29→23:10)
[2021-07-20 13:05] VITALS: BP 125/86
--- NOTE | 2021-07-20 13:48 | HPEPDOC ---
[facility] Medical History & Physical Date of Admission Jul 20, 2021 Date of Service: Jul 20, 2021 Attending Physician: ANCA YOUNGBLOOD MD History and Physical CHIEF COMPLAINT: L top eyelid pain, swelling, redness HISTORY OF PRESENT ILLNESS: 31 yo M with PSUD who presented to the ED with L top eyelid pain, swelling, redness and pain. He was otherwise normotensive and afebrile with the main c omplaint being eye pain but vision was intact and he could move his eye muscles well. Workup was notable for leukocytosis to 12.2, hgb 14.3, platelets of 195, na 139, K 4.2, Cr 0.[address] showed moderate L periorbital soft tissue swelling extending into the nose and lateral aspect of the face to the L ear. In the supraorbital soft tissue there is an ovoid low attenuation area just beneath the skin measuring [id number] which may reflect abscess but otherwise had negative CT orbits and facial structures. Ophthalmology was consulted by ED and review of imaging recommended admission for IV antibiotics and no surgical intervention at this time mentioning that this would not be drained but allow to be treated with antibiotic therapy. He is now being admitted to medicine for IV antibiotics. PAST MEDICAL and SURGICAL HISTORY: 1. Polysubstance abuse including heroin with a previous history of overdose. 2. Nicotine dependence. 3. History of traumatic pneumothorax on the right. SOCIAL HISTORY: Tobacco use: current smoker Illicit drug use: varied use of many substances ALLERGIES: Please see below. REVIEW OF SYSTEMS:10 point ROS was otherwise negative except as noted in the HPI HOME MEDICATIONS: Please see below. PHYSICAL EXAMINATION: VITAL SIGNS: see below GENERAL APPEARANCE: NAD HEENT: L eyelid swollen with large swelling at level of lateral brow with surrounding erythema, TTP, no eye drainage at this time, injected eye. R eye exam wnl CARDIOVASCULAR: RRR, no m/r/g LUNGS: CTAB ABDOMEN: Normoactive sounds, soft NTND EXTREMITIES: WWP, no LE edema NEUROLOGICAL: CN 3-12 intact, CN3,4,6 intact in both eyes, rest of cranial nerves wnl, grossly nonfocal PSYCHIATRIC: AOx3 LABORATORY DATA and IMAGING: as noted above MICROBIOLOGY: Please see below. ASSESSMENT: 31 yo M with PSUD who presented to the ED with L top eyelid pain, swelling, redness and pain now being admitted to medicine for IV antibiotics for soft tissue preseptal cellulitis. PLAN: L preseptal cellulitis: -Vanc, ceftriaxone -MRSA PCR -morphine 2mg Q4HP for severe eye pain -warm compresses PRN -Ophthalmology was consulted from ED and recommended no surgical intervention at this time, to give IV antibiotics DVT ppx: lovenox Vital Signs Vital Signs Date Time Temp Pulse Resp B/P (MAP) Pulse Ox O2 Delivery O2 Flow Rate FiO2 07/20/21 13:05 98.6 75 18 125/86 (99) Room Air 07/20/21 13:00 96 Laboratory Data Labs 24H Laboratory Tests 2 07/20/21 02:00: Immature Granulocyte % (Auto) 0.6, Neutrophils (%) (Auto) 83.6H, Lymphocytes (%) (Auto) 6.3L, Monocytes (%) (Auto) 9.3H, Eosinophils (%) (Auto) 0.0, Basophils (%) (Auto) 0.2, Neutrophils # (Auto) 10.2H, Lymphocytes # (Auto) 0.8L, Monocytes # (Auto) 1.1H, Eosinophils # (Auto) 0.0, Basophils # (Auto) 0.0, Nucleated Red Blood Cells % (auto) 0.0, Erythrocyte Sedimentation Rate 27H, Anion Gap 2L, Glomerular Filtration Rate > 60.0, Calcium Level 8.7, C-Reactive Protein, Quantitative 1.08H 07/20/21 03:51: Coronavirus (COVID-19)(PCR) NEGATIVE, Influenza Type A (RT-PCR) NEGATIVE, Influenza Type B (RT-PCR) NEGATIVE, Respiratory Syncytial Virus (PCR) NEGATIVE 07/20/21 10:25: Methicillin-Resist S.aureus DNA PCR DETECTEDA CBC/BMP Laboratory Tests 07/20/21 02:00 Microbiology Microbiology 07/20/21 Blood Culture, Received Pending 07/20/21 Blood Culture, Received Pending Home Medications No Active Prescriptions or Reported Meds Allergies Coded Allergies: No Known Allergies (Unverified , 07/20/21) A-FIB/CHADSVASC A-FIB History Current/History of A-Fib/PAF?: No Current PO Anticoag Therapy: No Age/Risk Factor Scoring CHADSVASC: CHADSVASC Response (Comments) Value Age Risk Factor Age < 65 years old 0 Gender Risk Factor Male 0 Hx of CHF No 0 Hx of HTN No 0 Hx of Stroke/TIA/or VTE No 0 Hx of Diabetes No 0 Hx of Vascular Disease No 0 Total 0 Treatment Treatment ordered: NONE Reason Anticoagulant not given: Not indicated/[id number] ANCA YOUNGBLOOD MD Jul 20, 2021 13:48
[2021-07-20] MEDS: KETOROLAC 30 MG/ML 1ML VIAL IV PRN (21:45)
[2021-07-20 22:00] VITALS: BP 126/85
[2021-07-21] MEDS: VANCOMYCIN HCL 1,000 MG, VIAL MATE ADAPTER 1 EACH in NS 250 ML IV SCH ×2 (00:02→08:51)
[2021-07-21] MEDS: MORPHINE 2 MG/ML 1ML VIAL (J2270) IV PRN (04:53)
[2021-07-21 06:00] VITALS: BP 126/84
[2021-07-21 06:49] LABS: HEMATOCRIT 40.4 % (42.0-52.0); HEMOGLOBIN 13.7 g/dl (13.5-17.5); MEAN CORPUSCULAR HGB CONC 33.9 g/dl (32.0-36.5); MEAN CORPUSCULAR VOLUME 88.6 fl (80.0-96.0); PLATELET COUNT, AUTOMATED 220 10^3/uL (150-450); RED BLOOD COUNT 4.56 10^6/uL (4.30-6.10); WHITE BLOOD COUNT 8.1 10^3/uL (4.0-10.0)
[2021-07-21 07:08] LABS: BLOOD UREA NITROGEN 11 MG/DL (7-18); CARBON DIOXIDE LEVEL 29 MEQ/L (21-32); CHLORIDE LEVEL 109 MEQ/L (98-107); CREATININE FOR GFR 0.64 MG/DL (0.70-1.30); GLOMERULAR FILTRATION RATE > 60.0 (>60); GLUCOSE, FASTING 100 MG/DL (70-100); MAGNESIUM LEVEL 2.1 MG/DL (1.8-2.4); SODIUM LEVEL 141 MEQ/L (136-145)
[2021-07-21] MEDS: ENOXAPARIN 40MG/0.4ML SYRINGE (J1650 PER 10MG) SC SCH (08:51)
[2021-07-21] MEDS: KETOROLAC 30 MG/ML 1ML VIAL IV PRN (10:50)
[2021-07-21] MEDS: cefTRIAXone SOD 2 GM in D5W MINI-BAG PLUS 50 ML IV SCH (12:06)
--- NOTE | 2021-07-21 13:05 | IPNPDOC ---
Subjective Date Seen The patient was seen on 07/21/21. Subjective Chief Complaint/HPI Continues to have left eyelid swelling and left periorbital swelling. Says that the swelling has localized more at one point on the eye lid. pain is controlled no fever or chills. Objective Physical Examination General Exam: Positive: Alert, Cooperative, No Acute Distress Eye Exam: Positive: PERRLA, EOMI, Ptosis (of the left eye), Other Eye Symptoms (round fluctuant swelling 2cm x 2cm located on the left eyelid with periorbital swelling and swelling of the rest of the left eyelid.); Negative: Sclera icteric ENT Exam: Positive: Atraumatic, Mucous membr. moist/pink, Pharynx Normal Neck Exam: Positive: Supple; Negative: JVD, thyromegaly Chest Exam: Positive: Clear to auscultation, Normal air movement Heart Exam: Positive: Rate Normal, Regular Rhythm, Normal S1, Normal S2; Negative: Murmurs, Rubs Abdomen Exam: Positive: Normal bowel sounds, Soft; Negative: Tenderness Extremity Exam: Negative: Clubbing, Cyanosis, Edema Assessment /Plan Assessment 31 yo M with PSUD who presented to the ED with Left top eyelid pain, swelling, redness noted to have a localized fluctuant swelling on the left upper eye lid and then swelling involving the surrounding areas around the orbit. He was admitted for Preseptal cellulitis. Left preseptal cellulitis: -On Vanc, ceftriaxone -MRSA PCR positive -morphine 2mg Q4HP for severe eye pain -warm compresses PRN -Ophthalmology was consulted from ED and recommended no surgical intervention at this time, to give IV antibiotics Plan/VTE VTE Prophylaxis Ordered?: Yes VS, [facility] V[facility] Signs/I&O Vital Signs Date Time Temp Pulse Resp B/P (MAP) Pulse Ox O2 Delivery O2 Flow Rate FiO2 07/21/21 06:00 98.3 70 18 126/84 (98) 98 Room Air I&O- Last 24 Hours up to 6 AM 07/21/21 05:59 Intake Total 1720 ml Balance 1720 ml Laboratory Data 24H LABS Laboratory Tests 2 07/21/21 06:13: Nucleated Red Blood Cells % (auto) 0.0, Anion Gap 3L, Glomerular Filtration Rate > 60.0, Calcium Level 9.0, Magnesium Level 2.1 CBC/BMP Laboratory Tests 07/21/21 06:13 Microbiology Microbiology 07/20/21 Blood Culture - Preliminary, Resulted No growth after 24 hours . All specim... 07/20/21 Blood Culture - Preliminary, Resulted No growth after 24 hours . All specim... Rashmi Ramachandran MD Jul 21, 2021 13:05
[2021-07-21] MEDS ORDERED: CLEO300C2 PO (13:46)
--- NOTE | 2021-07-21 13:51 | DS.PDOC ---
Discharge Summary General Date of Admission Jul 20, 2021 at 08:26 Date of Discharge 07/21/21 Discharge Summary PROCEDURES PERFORMED DURING STAY: [None]. DISCHARGE DIAGNOSES: Left preseptal cellulitis Polysubstance use disorder COMPLICATIONS/CHIEF COMPLAINT: Polysubstance Abuse,Preseptal Cellulitis Of [place] HOSPITAL COURSE: 31 yo M with recreational polysubstance use disorder who presented to the ED with Left top eyelid pain, swelling, redness noted to have a localized fluctuant swelling on the left upper eye lid and then swelling involving the surrounding areas around the orbit. He was admitted for Preseptal cellulitis. Patient refused to stay in the hospital any longer and signed out AMA. Left preseptal cellulitis: Treated vanc, ceftriaxone in hospital MRSA PCR positive Continue warm compresses PRN Ophthalmology was consulted from ED and recommended no surgical intervention at this time, to give IV antibiotics Patient refused to stay in the hospital any longer and signed out AMA I sent prescriptions for clindamycin to his pharmacy DISCHARGE MEDICATIONS: Please see below. ALLERGIES: Please see below. PHYSICAL EXAMINATION ON DISCHARGE: VITAL SIGNS: Please see below. General Exam: Positive: Alert, Cooperative, No Acute Distress Eye Exam: Positive: PERRLA, EOMI, Ptosis (of the left eye), Other Eye Symptoms (round fluctuant swelling 2cm x 2cm located on the left eyelid with periorbital swelling and swelling of the rest of the left eyelid.); Negative: Sclera icteric ENT Exam: Positive: Atraumatic, Mucous membr. moist/pink, Pharynx Normal Neck Exam: Positive: Supple; Negative: JVD, thyromegaly Chest Exam: Positive: Clear to auscultation, Normal air movement Heart Exam: Positive: Rate Normal, Regular Rhythm, Normal S1, Normal S2; Negative: Murmurs, Rubs Abdomen Exam: Positive: Normal bowel sounds, Soft; Negative: Tenderness Extremity Exam: Negative: Clubbing, Cyanosis, Edema LABORATORY DATA: Please see below. ACTIVITY: [As tolerated]. DIET: As tolerated DISPOSITION: 07 Against Medical Advice. DISCHARGE INSTRUCTIONS: Instructed to come back to emergency room if swelling and pain worsens. Follow-up with primary care provider Will need referral to ophthalmology if the swelling persists and does not improve and antibiotics DISCHARGE CONDITION: [Stable]. TIME SPENT ON DISCHARGE: 31 minutes. Vital Signs/I&Os Vital Signs Date Time Temp Pulse Resp B/P (MAP) Pulse Ox O2 Delivery O2 Flow Rate FiO2 07/21/21 06:00 98.3 70 18 126/84 (98) 98 Room Air I&O- Last 24 Hours up to 6 AM 07/21/21 06:00 Intake Total 1720 ml Balance 1720 ml Laboratory Data Labs 24H Laboratory Tests 2 07/21/21 06:13: Nucleated Red Blood Cells % (auto) 0.0, Anion Gap 3L, Glomerular Filtration Rate > 60.0, Calcium Level 9.0, Magnesium Level 2.1 CBC/BMP Laboratory Tests 07/21/21 06:13 Microbiology Microbiology 07/20/21 Blood Culture - Preliminary, Resulted No growth after 24 hours . All specim... 07/20/21 Blood Culture - Preliminary, Resulted No growth after 24 hours . All specim... Discharge Medications Scheduled Clindamycin Hcl (Cleocin HCl) 300 Mg Capsule, 1 CAP PO TID Allergies Coded Allergies: No Known Allergies (Unverified , 07/20/21) Rashmi Ramachandran MD Jul 21, 2021 13:51
--- NOTE | 2021-07-22 10:01 | REP ---
INDICATION: preseptal cellulitis vs abscess. COMPARISON: None. TECHNIQUE: CT maxillofacial region performed following the intravenous administration of 100 cc of Isovue 370. Sagittal and coronal reconstruction images are performed. FINDINGS: There is moderate left periorbital soft tissue edema and likely cellulitis extending to the left nasal soft tissues common extending laterally to the left ear. In the left supraorbital soft tissues there is an oval low-attenuation area just beneath the skin measuring 9 x 14 x 12 mm suspicious for a developing abscess. The retro bulbar fat appears normal. The globes are intact. The intraorbital musculature appears unremarkable. No osseous abnormality is seen. The paranasal sinuses are clear with no air-fluid levels. The mastoid air cells appear well aerated. IMPRESSION: Moderate left periorbital soft tissue edema and likely cellulitis extending into the left nasal and periauricular soft tissues. Oval low-attenuation area in the left supraorbital soft tissues measuring 9 x 14 x 12 mm suspicious for a developing abscess. A preliminary report was provided by [facility] at the time of the exam. <Electronically signed by Richard Perkins > 07/22/21 [id number]
== END 2021-07-21 13:37 | disposition left against medical advice (07) | DRG 383 ==
LOC: M ED 20:32 → EEVIPCON 07-20 08:26 → M ED INP 07-20 08:26 → ENRESERV 07-20 12:05 → M MSPAV 07-20 13:10
PROVIDERS: ADMIT Internal Medicine; ATTEND Internal Medicine Nephrology
DX: L03.213 Periorbital cellulitis (principal); F11.10 Opioid abuse, uncomplicated; F17.200 Nicotine dependence, unspecified, uncomplicated; F19.10 Other psychoactive substance abuse, uncomplicated; Z20.822 Contact with and (suspected) exposure to COVID-19